=== PATIENT | female | born 1995 | race Caucasian/White ===

== ENCOUNTER 2020-12-30 00:35 | Day surgery (SDCO) | payer OTHER ==
[~2020-12-30 00:35] MED LIST: CLEOCIN300 MG PO; IBUPROFEN800 MG PO; NORCO 5-325 TA1 EACH PO
[2020-12-30 01:15] LABS: HCT 30.7 % (37.0-47.0); HGB 10.9 g/dl (12.5-16.0); MCH 33.7 pg (25.0-31.0); MCHC 35.5 g/dL (32.0-36.0); MPV 9.5 fL (6.0-9.5); RBC 3.23 M/uL (4.20-5.40); RDW 12.2 % (11.5-14.0); WBC 12.4 K/uL (4.0-10.5)
[2020-12-30 01:55] LABS: BILIRUBIN NEGATIVE (NEGATIVE); BLOOD NEGATIVE Ery/uL (NEGATIVE); CLARITY CLEAR (CLEAR); COLOR YELLOW (YELLOW); GLUCOSE (U) NORMAL (NORMAL); LEUKOCYTES NEGATIVE Leu/uL (NEGATIVE); NITRITE NEGATIVE (NEGATIVE); PROTEIN NEGATIVE (NEGATIVE); pH 7.5 (5.0-9.0)
[2020-12-30 01:56] LABS: AMPHETAMINES NEGATIVE (NEGATIVE); BARBITURATES NEGATIVE (NEGATIVE); ECSTASY (MDMA) NEGATIVE (NEGATIVE); MARIJUANA (THC) POSITIVE (NEGATIVE); METHADONE NEGATIVE (NEGATIVE); OPIATES NEGATIVE (NEGATIVE); OXYCODONE NEGATIVE (NEGATIVE)
== END 2020-12-30 09:40 | disposition home or self-care (01) ==
LOC: FER 00:35 → FOB 00:36
PROVIDERS: ADMIT Obstetrics & Gynecology
DX: O47.03 False labor before 37 completed weeks of gestation, third trimester (principal); O98.513 Other viral diseases complicating pregnancy, third trimester; U07.1 COVID-19; O99.013 Anemia complicating pregnancy, third trimester; D50.9 Iron deficiency anemia, unspecified; O99.333 Smoking (tobacco) complicating pregnancy, third trimester; F12.929 Cannabis use, unspecified with intoxication, unspecified; F17.210 Nicotine dependence, cigarettes, uncomplicated; O21.0 Mild hyperemesis gravidarum; O23.13 Infections of bladder in pregnancy, third trimester; O26.853 Spotting complicating pregnancy, third trimester; M54.30 Sciatica, unspecified side; K21.9 Gastro-esophageal reflux disease without esophagitis; Z3A.30 30 weeks gestation of pregnancy
CPT/HCPCS: 36415; 80305; 81003; 82950; 84112; 86850; 86900; 86901; 87070; 87088; G0378; J0290; J7120; U0002